=== PATIENT | male | born 1955 | race Caucasian/White ===

== ENCOUNTER 2020-08-06 09:14 | Inpatient (IN) | payer OTHER ==
[2020-08-06] MEDS ORDERED: chlordiazePOXIDE HCL 25 MG CAPSULE PO PRN (10:04)
[2020-08-06] MEDS ORDERED: METHOCARBAMOL 500 MG TABLET PO PRN (10:04)
[2020-08-06] MEDS ORDERED: ONDANSETRON *ODT* 4 MG TABLET SL PRN (10:04)
[2020-08-06] MEDS ORDERED: MENTHOL/PHENOL 1 EACH UD MM PRN (10:04)
[2020-08-06] MEDS ORDERED: ACETAMINOPHEN 325 MG TABLET (FP) PO PRN ×2 (10:04)
[2020-08-06] MEDS ORDERED: IBUPROFEN 400 MG TABLET (FP) PO PRN (10:04)
[2020-08-06] MEDS ORDERED: MAGNESIUM HYDROX 2400MG/30ML ORAL SUSPENSION 30 ML CUP PO PRN (10:04)
[2020-08-06] MEDS ORDERED: BISMUTH SUBSALICYLATE 262 MG/15 ML BTL PO PRN (10:04)
[2020-08-06] MEDS ORDERED: MAG HYDROX/AL HYDROX/SIMETH 30 ML UNIT-DOSE CUP PO PRN (10:04)
[2020-08-06] MEDS ORDERED: MAGNESIUM CITRATE 300 ML BOTTLE PO PRN (10:04)
[2020-08-06 10:22] VITALS: BMI 24.7
[2020-08-06] MEDS: chlordiazePOXIDE HCL 25 MG CAPSULE PO SCH ×3 (10:46→22:13)
[2020-08-06] MEDS: PRENATAL VITAMINS W/ FOLIC ACID TABLET (FP) PO SCH (10:46)
[2020-08-06 11:34] LABS: POTASSIUM 3.6 mmol/L (3.5-5.1)
[2020-08-06 11:35] LABS: HEMATOCRIT 40.4 % (35.4-49); HEMOGLOBIN 14.1 GM/dL (11.7-16.9); MCH 33.3 pg (25.7-33.7); MCHC 34.9 g/dl (32.0-35.9); MEAN CELL VOLUME 95.2 fl (80-96); MEAN PLT VOLUME 8.4 fl (7.5-11.1); PLATELET COUNT 186 K/MM3 (134-434); RBC 4.25 M/mm3 (4.00-5.60); RDW 12.6 % (11.9-15.9); WHITE BLOOD COUNT 6.8 K/mm3 (4.0-10.0)
[2020-08-06 11:36] LABS: CALCIUM 8.8 mg/dL (8.5-10.1)
[2020-08-06 11:37] LABS: ALBUMIN 3.7 g/dl (3.4-5.0); BLOOD UREA NITROGEN 10.6 mg/dL (7-18)
[2020-08-06 11:41] LABS: BILIRUBIN,TOTAL 1.1 mg/dL (0.2-1)
[2020-08-06 11:42] LABS: TOT PROT 7.3 g/dl (6.4-8.2)
[2020-08-06] MEDS: hydrOXYzine PAMOATE 25 MG CAPSULE (FP) PO SCH ×3 (14:59→22:13)
[2020-08-06] MEDS ORDERED: PATIENT'S OWN MEDICATION (NON-FORMULARY) (Zolpidem Tartrate [Ambien] 10 MG Tablet) PO SCH (22:00)
[2020-08-06] MEDS: THIAMINE HCL 100 MG TABLET (FP) PO SCH (22:13)
[2020-08-06] MEDS: MELATONIN 5 MG TABLETS PO SCH (22:13)
[2020-08-07] MEDS: chlordiazePOXIDE HCL 25 MG CAPSULE PO SCH ×2 (05:15→10:09)
[2020-08-07] MEDS: hydrOXYzine PAMOATE 25 MG CAPSULE (FP) PO SCH ×5 (05:16→22:25)
[2020-08-07] MEDS: ATORVASTATIN CA 10 MG TABLET (FP) PO SCH (10:09)
[2020-08-07] MEDS: LOSARTAN POTASSIUM 50 MG TABLET PO SCH (10:09)
[2020-08-07] MEDS: PRENATAL VITAMINS W/ FOLIC ACID TABLET (FP) PO SCH (10:10)
[2020-08-07] MEDS ORDERED: LORazepam 1 MG TABLET PO PRN (11:10)
[2020-08-07] MEDS ORDERED: LORazepam 2 MG TABLET PO PRN (17:00)
[2020-08-07] MEDS: MELATONIN 5 MG TABLETS PO SCH (22:25)
[2020-08-07] MEDS: THIAMINE HCL 100 MG TABLET (FP) PO SCH (22:25)
[2020-08-08] MEDS ORDERED: chlordiazePOXIDE HCL 25 MG CAPSULE PO SCH (05:00)
[2020-08-08] MEDS: hydrOXYzine PAMOATE 25 MG CAPSULE (FP) PO SCH ×5 (05:19→22:24)
[2020-08-08] MEDS: LORazepam 1 MG TABLET PO SCH ×4 (05:19→22:25)
[2020-08-08] MEDS: LOSARTAN POTASSIUM 50 MG TABLET PO SCH (10:12)
[2020-08-08] MEDS: ATORVASTATIN CA 10 MG TABLET (FP) PO SCH (10:13)
[2020-08-08] MEDS: PRENATAL VITAMINS W/ FOLIC ACID TABLET (FP) PO SCH (10:13)
[2020-08-08 11:16] LABS: ALBUMIN 3.1 g/dl (3.4-5.0)
[2020-08-08 11:19] LABS: BILIRUBIN,DIRECT 0.4 mg/dL (0.0-0.2)
[2020-08-08 11:21] LABS: BILIRUBIN,TOTAL 1.3 mg/dL (0.2-1)
[2020-08-08] MEDS: THIAMINE HCL 100 MG TABLET (FP) PO SCH (22:25)
[2020-08-08] MEDS: MELATONIN 5 MG TABLETS PO SCH (22:25)
[2020-08-09] MEDS ORDERED: chlordiazePOXIDE HCL 10 MG CAPSULE PO PRN
[2020-08-09] MEDS ORDERED: chlordiazePOXIDE HCL 10 MG CAPSULE PO SCH (05:00)
[2020-08-09] MEDS: hydrOXYzine PAMOATE 25 MG CAPSULE (FP) PO SCH ×5 (05:52→22:05)
[2020-08-09] MEDS: LORazepam 0.5 MG TABLET PO SCH ×4 (05:52→22:05)
[2020-08-09] MEDS: ATORVASTATIN CA 10 MG TABLET (FP) PO SCH (10:19)
[2020-08-09] MEDS: PRENATAL VITAMINS W/ FOLIC ACID TABLET (FP) PO SCH (10:19)
[2020-08-09] MEDS: LOSARTAN POTASSIUM 50 MG TABLET PO SCH (10:19)
[2020-08-09 19:41] LABS: HIV INTERPRETATION NEGATIVE (NEGATIVE)
[2020-08-09] MEDS: THIAMINE HCL 100 MG TABLET (FP) PO SCH (22:05)
[2020-08-09] MEDS: MELATONIN 5 MG TABLETS PO SCH (22:05)
[2020-08-10] MEDS ORDERED: LORazepam 0.5 MG TABLET PO PRN
[2020-08-10] MEDS ORDERED: LORazepam 0.5 MG TABLET PO ONE (05:00)
[2020-08-10] MEDS ORDERED: chlordiazePOXIDE HCL 10 MG CAPSULE PO SCH (05:00)
[2020-08-10 06:02] VITALS: TEMP 98.6
[2020-08-10] MEDS: hydrOXYzine PAMOATE 25 MG CAPSULE (FP) PO SCH (06:56)
[2020-08-10 09:44] VITALS: BP 108/65; PULSE 77
[2020-08-11] MEDS ORDERED: chlordiazePOXIDE HCL 10 MG CAPSULE PO ONE (05:00)
== END 2020-08-10 09:47 | disposition home or self-care (01) | DRG 897 ==
LOC: YASAS 09:14 → Y3N 10:00
PROVIDERS: ADMIT Allergy & Immunology; ATTEND Allergy & Immunology
PROC: HZ2ZZZZ Detoxification Services for Substance Abuse Treatment (ICD-10-PCS; principal; 2020-08-06)
DX: F10.230 Alcohol dependence with withdrawal, uncomplicated (principal); I10 Essential (primary) hypertension; E78.5 Hyperlipidemia, unspecified; R74.01 Elevation of levels of liver transaminase levels; R74.8 Abnormal levels of other serum enzymes; Z87.891 Personal history of nicotine dependence
CPT/HCPCS: 36415; 80053; 80076; 85027; 86780; 87389; 93005; 93010; C9803; U0003